=== PATIENT | male | born 2000 | race American Indian/Alaskan Native ===

== ENCOUNTER 2022-02-02 14:43 | Emergency (ER) | payer MEDICAID ==
[2022-02-02 16:19] VITALS: BP 112/65
--- NOTE | 2022-02-02 16:24 | Emergency Department Report ---
ED Upper Extremity Inj HPI - General Chief Complaint: Extremity Injury, Upper Stated Complaint: LEFT WRIST Source: patient Mode of arrival: Ambulatory Limitations: No Limitations - History of Present Illness Initial Comments: 21-year-old male with no significant medical history presents with left wrist pain x2 days fell out playing basketball. No weakness numbness tingling or p aresthesia. Pain with active ROM, improves at rest. Denies injury to his head neck or back, no medication . Other Extremity Injury: Wrist: Left Other Injuries: none - Related Data Home Medications Medication Instructions Recorded Confirmed Last Taken Dextroamphetamine/Amphetamine 10 mg PO DAILY 08/16/13 08/16/13 07/31/13 08:00 [Adderall] Previous Rx's Medication Instructions Recorded Last Taken Type Acetamin/Codeine 120-12Mg/5 ml 5 ml PO TID PRN #4 oz 08/16/13 Unknown Rx [Tylenol/Codeine] Naproxen [Naprosyn] 250 mg PO BID #14 tablet 08/16/13 Unknown Rx Ibuprofen [Motrin] 200 mg PO Q6H PRN #21 tablet 11/05/14 Unknown Rx Sulfamethoxazole/Trimethoprim 1 each PO BID #10 tablet 11/05/14 Unknown Rx [Bactrim Ds] Ibuprofen [Motrin] 600 mg PO Q8H PRN #20 tablet 03/11/15 Unknown Rx Ibuprofen [Motrin] 600 mg PO Q8H PRN #20 tablet 02/02/22 Unknown Rx Allergies Allergy/AdvReac Type Severity Reaction Status Date / Time No Known Allergies Allergy Unverified 08/16/13 00:40 ED Review of Systems ROS: Stated complaint: LEFT WRIST Other details as noted in HPI Constitutional: no symptoms reported Respiratory: no symptoms reported Endocrine: no symptoms reported Gastrointestinal: as per HPI Genitourinary: as per HPI Musculoskeletal: arthralgia. denies: back pain, joint swelling Skin: change in color, change in hair/nails Neurological: as per HPI. denies: headache, weakness ED Past Medical Hx - Past Medical History Previous Medical History?: No Hx Diabetes: No Hx Renal Disease: No Hx Sickle Cell Disease: No Hx Seizures: No Hx Asthma: No Hx HIV: No Additional medical history: ADHD - Surgical History Past Surgical History?: No - Social History Smoking Status: Never Smoker Substance Use Type: None - Medications Home Medications: Home Medications Medication Instructions Recorded Confirmed Last Taken Type Acetamin/Codeine 120-12Mg/5 ml 5 ml PO TID PRN #4 oz 08/16/13 Unknown Rx [Tylenol/Codeine] Dextroamphetamine/Amphetamine 10 mg PO DAILY 08/16/13 08/16/13 07/31/13 08:00 History [Adderall] Naproxen [Naprosyn] 250 mg PO BID #14 tablet 08/16/13 Unknown Rx Ibuprofen [Motrin] 200 mg PO Q6H PRN #21 tablet 11/05/14 Unknown Rx Sulfamethoxazole/Trimethoprim 1 each PO BID #10 tablet 11/05/14 Unknown Rx [Bactrim Ds] Ibuprofen [Motrin] 600 mg PO Q8H PRN #20 tablet 03/11/15 Unknown Rx Ibuprofen [Motrin] 600 mg PO Q8H PRN #20 tablet 02/02/22 Unknown Rx ED Physical Exam - General Limitations: No Limitations General appearance: alert, in no apparent distress - Head Head exam: Present: atraumatic - Eye Eye exam: Present: normal appearance Pupils: Present: normal accommodation - ENT ENT exam: Present: normal exam - Neck Neck exam: Present: normal inspection - Respiratory Respiratory exam: Present: normal lung sounds bilaterally (Will need outpatient just to get an x-ray) - GI/Abdominal GI/Abdominal exam: Present: soft. Absent: distended, tenderness - Extremities Exam Extremities exam: Present: normal inspection, full ROM, tenderness (Tender over the right radial area, no obvious swelling or deformity, cap refill sensation pulses movement all intact.), normal capillary refill - Back Exam Back exam: Present: normal inspection, full ROM - Neurological Exam Neurological exam: Present: alert, oriented X3 - Psychiatric Psychiatric exam: Present: normal affect, normal mood - Skin Skin exam: Present: warm, dry, normal color. Absent: cyanosis, erythema, abrasion ED Course Vital Signs 02/02/22 16:17 Temperature 98.7 F Pulse Rate 65 Respiratory 14 Rate Blood Pressure 112/65 [Right] O2 Sat by Pulse 99 Oximetry ED Medical Decision Making - Medical Decision Making 3 days of right wrist pain no obvious swelling or deformity, Indication for imaging at this time Critical care attestation.: If time is entered above; I have spent that time in minutes in the direct care of this critically ill patient, excluding procedure time. ED Disposition Clinical Impression: Fall, Wrist pain Disposition: HOME / SELF CARE / HOMELESS Is pt being admited?: No Does the pt Need Aspirin: No Condition: Stable Instructions: How to Use Cold Therapy, [id number], Musculoskeletal Pain Prescriptions: Ibuprofen [Motrin] 600 mg PO Q8H PRN #20 tablet PRN Reason: Pain Referrals: VALERIO CAN MD [Referring] - 3-5 Days SIMRAN DUENAS MD [Referring] - 3-5 Days
== END 2022-02-02 18:00 | disposition home or self-care (01) ==
LOC: ED 14:43
DX: M25.532 Pain in left wrist (principal); W19.XXXA Unspecified fall, initial encounter; Y93.89 Activity, other specified; Y92.89 Other specified places as the place of occurrence of the external cause; Y99.8 Other external cause status
CPT/HCPCS: 99282